=== PATIENT | female | born 1990 | race Caucasian/White ===

== ENCOUNTER 2019-06-27 09:10 | Emergency (ER) | payer OTHER ==
--- NOTE | 2019-06-27 09:28 | ED Physician Documentation ---
Ankle Injury - HISTORIAN Historian: patient - HPI Stated Complaint: right ankle pain Chief Complaint: Ankle Injury Additional Information: Patient presents to ED with right ankle pain after twisting it while stepping off a chair she was standing on. She states she is able to walk on it but it causes pain. Patient reports lateral ankle swelling. Onset: hours (12) Where: home Severity: moderate r: twist Associated Symptoms:: swelling. denies: tingling, numbness distally Modifying Factors:: pain on movement - ROS CONST: no problems CVS/RESP: none NEURO: denies: headache GI/: denies: nausea, vomiting MS/SKIN/LYMPH: ankle swelling - PAST HX Past History: none Allergies/Adverse Reactions: Allergies Allergy/AdvReac Type Severity Reaction Status Date / Time No Known Allergies Allergy Verified 06/27/19 09:27 Home Medications: Ambulatory Orders Medication Instructions Recorded Bupropion HCl [Bupropion Xl] 150 mg PO BID 06/27/19 - SOCIAL HX Smoking History: cigarettes Alcohol Use: none Drug Use: none - FAMILY HX Family History: none - VITAL SIGNS Vital Signs: Vital Signs Temp Pulse Resp BP Pulse Ox 122/78 08/10/13 09:04 - REVIEWED ASSESSMENTS Nursing Assessment Reviewed: Yes Vitals Reviewed: Yes ED Results Lab/Radiology - Radiology Radiology Impressions: Report Submission Date: Jun 27, 2019 10:03:35 AM TRADE SHOW SPECIALIST Patient Study Name: ROXANA BEJARANO Date: Jun 27, 2019 9:26:18 AM TRADE SHOW SPECIALIST Modality Type: DX Gender: F Description: ANKLE 3 VIEWS OR MORE : 89 Institution: [facility] Physician: FORD JONES Right ankle History: Status post fall Three views of the right ankle demonstrate no osseous abnormality. Mineralization and alignment is normal. The talar dome and ankle mortise are intact. There is mild soft tissue swelling laterally. Impression: No osseous abnormality. Mild soft tissue swelling laterally. Electronically signed on Jun 27, 2019 10:03:35 AM TRADE SHOW SPECIALIST by: Chelsy Dos Santos - Orders Orders: ED Orders Category Date Time Status ANKLE 3 VIEWS OR MORE [RAD] Stat Exams 06/27/19 Ordered Ankle Injury Physical Exam - Physical Exam General Appearance: no acute distress, alert Foot: bilateral foot: non-tender, normal inspection, normal range of motion, no evidence of injury Ankle: right: pain, soft tissue tenderness, swelling (lateral), left: non- tender, normal inspection, normal range of motion, no evidence of injury Gait: limited by pain Neuro: sensation nml Vascular: no vascular compromise Tendons: tendon function nml Leg/Knee/Thigh: uninjured above ankle Skin: intact Head/ENT: nml inspection Neck/Back: non-tender Resp/CVS: chest non-tender, breath sounds nml, heart sounds nml Abdomen: non-tender, pelvis stable Discharge Clincal Impression: Right ankle swelling Referrals: Primary Doctor,No [Primary Care Provider] - 2 Days Additional Instructions: 1. Tylenol 650mg every 4 hours and/or Ibuprofen 600mg every 6 hours as needed for pain. You may take these together for better pain control. 2. Apply ice to affected area as needed for comfort 3. Apply FUENTES bandage to right ankle with activity x 7 days. Remove with rest/ sleep. 4. Keep leg elevated at rest to help reduce swelling. 5. Follow up with PCP within 1 week 6. Return to ER for new or worsening symptoms Condition: Stable Disposition: 01 HOME, SELF-CARE Decision to Admit: NO Date of Decison to Admit: 06/27/19 Decision Time: 10:26
--- NOTE | 2019-06-27 10:09 | Diagnostic Imaging Report ---
PATIENT MR#: [id number] PATIENT PATIENT NAME: ROXANA BEJARANO DATE OF : 1990 REFERRING PHYSICIAN: Vianey Negron EXAM DATE: 06/27/2019 ACCESSION NUMBER: [id number] EXAM DESCRIPTION: ANKLE 3 VIEWS OR MORE Right ankle History: Status post fall Three views of the right ankle demonstrate no osseous abnormality. Mineralization and alignment is n ormal. The talar dome and ankle mortise are intact. There is mild soft tissue swelling laterally. Impression: No osseous abnormality. Mild soft tissue swelling laterally. Read by: Dr. Chelsy Dos Santos Transcribed by: Transcribed Date: Electronically signed by: Dr. Chelsy Dos Santos Date signed: 06/27/2019 10:08:14 AM
[2019-06-27 10:43] VITALS: BP 134/89
== END 2019-06-27 10:35 | disposition home or self-care (01) ==
LOC: ED 09:10
DX: M25.471 Effusion, right ankle (principal)
CPT/HCPCS: 73610; 99283; 99284